=== PATIENT | male | born 1990 | race Caucasian/White ===

== ENCOUNTER 2018-04-14 12:13 | Inpatient (IN) | payer OTHER ==
[2018-04-14 15:21] VITALS: BMI 19.1
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
[2018-04-14] MEDS ORDERED: ACETAMINOPHEN 325 MG TABLET (FP) PO PRN (16:09)
[2018-04-14] MEDS ORDERED: IBUPROFEN 400 MG TABLET (FP) PO PRN (16:09)
[2018-04-14] MEDS ORDERED: guaiFENesin/D-METHORPHAN HB 10 ML UNIT-DOSE CUPS PO PRN (16:09)
[2018-04-14] MEDS ORDERED: MAG HYDROX/AL HYDROX/SIMETH 30 ML UNIT-DOSE CUP PO PRN (16:09)
[2018-04-14] MEDS ORDERED: MENTHOL/PHENOL 1 EACH UD MM PRN (16:09)
[2018-04-14] MEDS ORDERED: P-EPHED 60MG/TRIPROLIDI 2.5MG TABLET PO PRN (16:09)
[2018-04-14] MEDS ORDERED: MAGNESIUM HYDROX 2400MG/30ML ORAL SUSPENSION 30 ML CUP PO PRN (16:09)
[2018-04-14] MEDS ORDERED: MAGNESIUM CITRATE 300 ML BOTTLE PO PRN (16:09)
[2018-04-14] MEDS ORDERED: METHADONE HCL 10 MG TABLET PO ONE (18:15)
[2018-04-14] MEDS ORDERED: METHADONE HCL 5 MG TABLET (FOR DETOX USE ONLY) PO ONE (19:00)
[2018-04-14] MEDS: BACITRACIN 0.9 GM PACKET TP SCH (22:03)
[2018-04-14] MEDS: THIAMINE HCL 100 MG TABLET (FP) PO SCH (22:04)
[2018-04-14] MEDS: MELATONIN 5 MG TABLETS PO PRN (22:05)
[2018-04-14] MEDS ORDERED: METHADONE HCL 10 MG TABLET (FOR DETOX USE ONLY) PO ONE (23:00)
[2018-04-15] MEDS: PRENATAL VITAMINS W/ FOLIC ACID TABLET (FP) PO SCH (09:50)
[2018-04-15] MEDS: BACITRACIN 0.9 GM PACKET TP SCH ×2 (09:50→22:05)
[2018-04-15] MEDS ORDERED: METHADONE HCL 10 MG TABLET (FOR DETOX USE ONLY) PO ONE (10:00)
[2018-04-15 10:21] LABS: HEMATOCRIT 43.2 % (35.4-49); HEMOGLOBIN 14.3 GM/dL (11.7-16.9); MCH 30.9 pg (25.7-33.7); MEAN CELL VOLUME 93.6 fl (80-96); MEAN PLT VOLUME 7.8 fl (7.5-11.1); PLATELET COUNT 265 K/MM3 (134-434); RBC 4.61 M/mm3 (4.00-5.60); RDW 12.8 % (11.9-15.9)
[2018-04-15 10:51] LABS: ALBUMIN 3.4 g/dl (3.4-5.0); ALK PHOS 63 U/L (45-117); ANION GAP 9 MMOL/L (8-16); BILIRUBIN,TOTAL 0.6 mg/dL (0.2-1); BLOOD UREA NITROGEN 13 mg/dL (7-18); CALCIUM 8.9 mg/dL (8.5-10.1); CHLORIDE 104 mmol/L (98-107); CO2 28 mmol/L (21-32); CREATININE 0.7 mg/dL (0.55-1.3); GLUCOSE,RANDOM 80 mg/dL (74-106); POTASSIUM 4.2 mmol/L (3.5-5.1); SGOT/AST 11 U/L (15-37); SGPT/ALT 23 U/L (13-61); SODIUM 141 mmol/L (136-145); TOT PROT 6.7 g/dl (6.4-8.2)
[2018-04-15 13:03] LABS: URINE APPEARANCE TURBID; URINE BILIRUBIN NEGATIVE (<2.0 mg/dL); URINE COLOR AMBER; URINE GLUCOSE (UA) NEGATIVE (NEGATIVE); URINE KETONE NEGATIVE (NEGATIVE); URINE LEUK ESTERASE NEGATIVE (NEGATIVE); URINE NITRITE NEGATIVE (NEGATIVE); URINE PROTEIN NEGATIVE (NEGATIVE); URINE UROBILINOGEN NEGATIVE mg/dL (0.2-1.0)
--- NOTE | 2018-04-15 16:58 | PN ---
BHS COWS - Scale Resting Pulse: 0= [place] 80 or Below Sweatin= Chills/Flushing Restless Observation: 1= Difficult to Sit Still Pupil Size: 0= Normal to Room Light Bone or Joint Aches: 1= Mild Discomfort Runny Nose/ Eye Tearin= Runny Nose/Eyes GI Upset > 30mins: 0= None Tremor Observation of Outstretched Hands: 1= Tremor [place], Not Seen Yawning Observation: 2= >3x During Session Anxiety or Irritability: 2=Irritable/Anxious Goose Flesh Skin: 0=Smooth Skin COWS Score: 10 BHS Progress Note (SOAP) Subjective: sweats, chills, interrupted sleep Objective: 04/15/18 16:57 Vital Signs Temperature 97.8 F 04/15/18 13:38 Pulse Rate 68 04/15/18 13:38 Respiratory Rate 20 04/15/18 13:38 Blood Pressure 100/76 04/15/18 13:38 O2 Sat by Pulse Oximetry (%) Laboratory Last Values WBC 8.0 K/mm3 (4.0-10.0) 04/15/18 08:00 RBC 4.61 M/mm3 (4.00-5.60) 04/15/18 08:00 Hgb 14.3 GM/dL (11.7-16.9) 04/15/18 08:00 Hct 43.2 % (35.4-49) 04/15/18 08:00 MCV 93.6 fl (80-96) 04/15/18 08:00 MCH 30.9 pg (25.7-33.7) 04/15/18 08:00 MCHC 33.0 g/dl (32.0-35.9) 04/15/18 08:00 RDW 12.8 % (11.9-15.9) 04/15/18 08:00 Plt Count 265 K/MM3 (134-434) 04/15/18 08:00 MPV 7.8 fl (7.5-11.1) 04/15/18 08:00 Sodium 141 mmol/L (136-145) 04/15/18 08:00 Potassium 4.2 mmol/L (3.5-5.1) 04/15/18 08:00 Chloride 104 mmol/L (98-107) 04/15/18 08:00 Carbon Dioxide 28 mmol/L (21-32) 04/15/18 08:00 Anion Gap 9 MMOL/L (8-16) 04/15/18 08:00 BUN 13 mg/dL (7-18) 04/15/18 08:00 Creatinine 0.7 mg/dL (0.55-1.3) 04/15/18 08:00 Creat Clearance w eGFR > 60 (>60) 04/15/18 08:00 Random Glucose 80 mg/dL (74-106) 04/15/18 08:00 Calcium 8.9 mg/dL (8.5-10.1) 04/15/18 08:00 Total Bilirubin 0.6 mg/dL (0.2-1) 04/15/18 08:00 AST 11 U/L (15-37) L 04/15/18 08:00 ALT 23 U/L (13-61) 04/15/18 08:00 Alkaline Phosphatase 63 U/L (45-117) 04/15/18 08:00 Total Protein 6.7 g/dl (6.4-8.2) 04/15/18 08:00 Albumin 3.4 g/dl (3.4-5.0) 04/15/18 08:00 Urine Color April 04/15/18 09:30 Urine Appearance Turbid 04/15/18 09:30 Urine pH 5.0 (5.0-8.0) 04/15/18 09:30 Ur Specific Robinson 1.024 (1.010-1.035) 04/15/18 09:30 Urine Protein Negative (NEGATIVE) 04/15/18 09:30 Urine Glucose (UA) Negative (NEGATIVE) 04/15/18 09:30 Urine Ketones Negative (NEGATIVE) 04/15/18 09:30 Urine Blood Negative (NEGATIVE) 04/15/18 09:30 Urine Nitrite Negative (NEGATIVE) 04/15/18 09:30 Urine Bilirubin Negative (<2.0 mg/dL) 04/15/18 09:30 Urine Urobilinogen Negative mg/dL (0.2-1.0) 04/15/18 09:30 Ur Leukocyte Esterase Negative (NEGATIVE) 04/15/18 09:30 RPR Titer Nonreactive (NONREACTIVE) 04/15/18 08:00 Aox3 no distress skin intact no adventitious breath sounds Full ROm ambulatory Assessment: 04/15/18 16:58 withdrawal sx Plan: increase Po fluids continue detox continue to monitor
[2018-04-15] MEDS: hydrOXYzine PAMOATE 25 MG CAPSULE (FP) PO PRN (17:05)
[2018-04-15] MEDS: MELATONIN 5 MG TABLETS PO PRN (22:05)
[2018-04-15] MEDS: THIAMINE HCL 100 MG TABLET (FP) PO SCH (22:05)
[2018-04-16] MEDS: hydrOXYzine PAMOATE 25 MG CAPSULE (FP) PO PRN ×3 (00:35→22:07)
[2018-04-16] MEDS ORDERED: METHADONE HCL 5 MG TABLET (FOR DETOX USE ONLY) PO ONE (10:00)
[2018-04-16] MEDS: PRENATAL VITAMINS W/ FOLIC ACID TABLET (FP) PO SCH (10:06)
[2018-04-16] MEDS: BACITRACIN 0.9 GM PACKET TP SCH ×2 (10:07→22:07)
--- NOTE | 2018-04-16 11:52 | PN ---
BHS COWS - Scale Resting Pulse: 0= [place] 80 or Below Sweatin= Chills/Flushing Restless Observation: 3= Extraneous Movement Pupil Size: 0= Normal to Room Light Bone or Joint Aches: 2= Severe Diffuse Aches Runny Nose/ Eye Tearin= Runny Nose/Eyes GI Upset > 30mins: 2= Nausea/Diarrhea Tremor Observation of Outstretched Hands: 2= Slight Tremor Visible Yawning Observation: 1= 1-2x During Session Anxiety or Irritability: 2=Irritable/Anxious Goose Flesh Skin: 0=Smooth Skin COWS Score: 15 BHS Progress Note (SOAP) Subjective: Tremor, chills, sweating, interrupted sleep Objective: 04/16/18 11:49 Last Vital Signs Temp Pulse Resp BP Pulse Ox 97.6 F 72 18 115/83 04/16/18 09:35 04/16/18 09:35 04/16/18 09:35 04/16/18 09:35 Laboratory Tests 04/15/18 04/15/18 04/15/18 08:00 08:00 08:00 WBC 8.0 RBC 4.61 Hgb 14.3 Hct 43.2 MCV 93.6 MCH 30.9 MCHC 33.0 RDW 12.8 Plt Count 265 MPV 7.8 Sodium 141 Potassium 4.2 Chloride 104 Carbon Dioxide 28 Anion Gap 9 BUN 13 Creatinine 0.7 Creat Clearance w eGFR > 60 Random Glucose 80 Calcium 8.9 Total Bilirubin 0.6 AST 11 L ALT 23 Alkaline Phosphatase 63 Total Protein 6.7 Albumin 3.4 Urine Color Urine Appearance Urine pH Ur Specific Friend Urine Protein Urine Glucose (UA) Urine Ketones Urine Blood Urine Nitrite Urine Bilirubin Urine Urobilinogen Ur Leukocyte Esterase RPR Titer Nonreactive 04/15/18 09:30 WBC RBC Hgb Hct MCV MCH MCHC RDW Plt Count MPV Sodium Potassium Chloride Carbon Dioxide Anion Gap BUN Creatinine Creat Clearance w eGFR Random Glucose Calcium Total Bilirubin AST ALT Alkaline Phosphatase Total Protein Albumin Urine Color April Urine Appearance Turbid Urine pH 5.0 Ur Specific Friend 1.024 Urine Protein Negative Urine Glucose (UA) Negative Urine Ketones Negative Urine Blood Negative Urine Nitrite Negative Urine Bilirubin Negative Urine Urobilinogen Negative Ur Leukocyte Esterase Negative RPR Titer Labs reviewed Assessment: 04/16/18 11:50 Withdrawal symptoms Plan: Continue detox Encouraged PO water intake
[2018-04-16] MEDS: THIAMINE HCL 100 MG TABLET (FP) PO SCH (22:07)
[2018-04-16] MEDS: MELATONIN 5 MG TABLETS PO PRN (22:08)
[2018-04-17] MEDS ORDERED: METHADONE HCL 10 MG TABLET (FOR DETOX USE ONLY) PO ONE (10:00)
[2018-04-17] MEDS: PRENATAL VITAMINS W/ FOLIC ACID TABLET (FP) PO SCH (10:02)
[2018-04-17] MEDS: BACITRACIN 0.9 GM PACKET TP SCH ×2 (10:02→22:08)
--- NOTE | 2018-04-17 14:54 | PN ---
BHS Progress Note (SOAP) Subjective: Sleep disturbance sweats hot/cold chills Objective: 04/17/18 14:52 A & O x 3 In no acute distress Vital Signs Temperature 98.2 F 04/17/18 13:02 Pulse Rate 86 04/17/18 13:02 Respiratory Rate 18 04/17/18 13:02 Blood Pressure 110/69 04/17/18 13:02 O2 Sat by Pulse Oximetry (%) Assessment: 04/17/18 14:53 withdrawal sx Plan: continue detox
[2018-04-17] MEDS: MELATONIN 5 MG TABLETS PO PRN (22:07)
[2018-04-17] MEDS: THIAMINE HCL 100 MG TABLET (FP) PO SCH (22:08)
[2018-04-18] MEDS ORDERED: METHADONE HCL 5 MG TABLET (FOR DETOX USE ONLY) PO ONE (06:00)
[2018-04-18 06:01] VITALS: BP 100/63; PULSE 67; TEMP 97.1
--- NOTE | 2018-04-18 10:19 | DS ---
[facility] Detox Discharge Summary Admission Date: 04/14/18 Discharge Date: 04/18/18 - History Present History: Opioid Dependence - Physical Exam Results Vital Signs: Vital Signs Temperature 97.1 F L 04/18/18 06:01 Pulse Rate 67 04/18/18 06:01 Respiratory Rate 18 04/18/18 06:01 Blood Pressure 100/63 04/18/18 06:01 O2 Sat by Pulse Oximetry (%) Pertinent Admission Physical Exam Findings: PATIENT COMPLETED DETOX WITHOUT ADVERSE EVENT. PATIENT CLINICALLY STABLE AND DENIES SI/HI. PATIENT ALERT AND ORIENTED X 3, AMB AD CJ, EXT WITH FULL ROM. PATIENT ENCOURAGED TO ATTEND NA TO PREVENT RELAPSE AND TO SEEK MEDICAL ATTENTION IF WITHDRAWAL SX OCCUR. PATIENT TO FOLLOW UP WITH PCP WITHIN ONE WEEK OF D/C. D/C INSTRUCTIONS GIVEN TO PATIENT BY STAFF. - Treatment Hospital Course: Detox Protocol Followed, Detoxed Safely, Responded well, Discharged Condition Good - Medication Discharge Medications: Ambulatory Orders Unobtainable 04/14/18 - AMA Did Patient Leave Against Medical Advice: No
== END 2018-04-18 09:18 | disposition home or self-care (01) | DRG 776 ==
LOC: YASAS 12:13 → Y3N 17:08
PROC: HZ2ZZZZ Detoxification Services for Substance Abuse Treatment (ICD-10-PCS; principal; 2018-04-14)
DX: F12.10 Cannabis abuse, uncomplicated (principal); F17.210 Nicotine dependence, cigarettes, uncomplicated; K50.90 Crohn's disease, unspecified, without complications
CPT/HCPCS: 36415; 80053; 81003; 85027; 86593

== ENCOUNTER 2024-04-03 16:54 | Inpatient (IN) | payer OTHER ==
[2024-04-03 18:00] VITALS: BMI 17.7
[2024-04-03] MEDS ORDERED: POLYETHYLENE GLYCOL (HEALTHYLAX) 3350 17 GM PACKET PO PRN (18:40)
[2024-04-03] MEDS ORDERED: BENZONATATE 200 MG CAPSULE PO PRN (18:40)
[2024-04-03] MEDS ORDERED: MAG HYDROX/AL HYDROX/SIMETH 30 ML UNIT-DOSE CUP PO PRN (18:40)
[2024-04-03] MEDS ORDERED: MAGNESIUM HYDROX 2400MG/30ML ORAL SUSPENSION 30 ML CUP PO PRN (18:40)
[2024-04-03] MEDS ORDERED: P-EPHED 60MG/TRIPROLIDI 2.5MG TABLET PO PRN (18:40)
[2024-04-03] MEDS ORDERED: IBUPROFEN 600 MG TABLET (FP) PO PRN (18:40)
[2024-04-03] MEDS ORDERED: DICYCLOMINE HCL 10 MG CAPSULE PO PRN (18:40)
[2024-04-03] MEDS ORDERED: LOPERAMIDE HCL 2 MG CAPSULE PO PRN (18:40)
[2024-04-03] MEDS ORDERED: NALOXONE (NYS OPIOID OVERDOSE PROGRAM) 4 MG/0.1 ML SPRAY NS PRN (18:40)
[2024-04-03] MEDS ORDERED: IBUPROFEN 400 MG TABLET (FP) PO PRN (18:40)
[2024-04-03] MEDS ORDERED: NALOXONE (NARCAN) HCL 4 MG/0.1 ML SPRAY NS PRN (18:40)
[2024-04-03] MEDS ORDERED: ONDANSETRON *ODT* 4 MG TABLET SL PRN (18:40)
[2024-04-03] MEDS ORDERED: BISMUTH SUBSALICYLATE 524 MG/30 ML PO PRN (18:40)
[2024-04-03] MEDS ORDERED: NICOTINE POLACRILEX 2 MG GUM BUC PRN (18:40)
[2024-04-03] MEDS ORDERED: NICOTINE POLACRILEX 2 MG LOZENGE BC PRN (18:40)
[2024-04-03] MEDS ORDERED: BENZOCAINE/MENTHOL (CHLORASEPTIC ) LOZENGE MM PRN (18:40)
[2024-04-03] MEDS: diazePAM 5 MG TABLET PO PRN (19:37)
[2024-04-03] MEDS: THIAMINE 100 MG TABLET PO SCH (22:09)
[2024-04-04] MEDS: methaDONE HCL 10 MG TABLET (FOR DETOX USE ONLY) PO ONE (10:17)
[2024-04-04] MEDS: PRENATAL VITAMINS W/ FOLIC ACID TABLET (FP) PO SCH (10:18)
[2024-04-04 11:27] LABS: POTASSIUM 3.9 mmol/L (3.5-5.1)
[2024-04-04 11:29] LABS: CALCIUM 8.9 mg/dL (8.5-10.1)
[2024-04-04 11:31] LABS: HEMATOCRIT 35.3 % (35.4-49); MCH 30.1 pg (25.7-33.7); MCHC 33.9 g/dl (32.0-35.9); MEAN CELL VOLUME 88.7 fl (80-96); MEAN PLT VOLUME 7.4 fl (7.5-11.1); PLATELET COUNT 244 10^3/uL (134-434); RBC 3.98 M/mm3 (4.00-5.60); RDW 12.8 % (11.9-15.9); WHITE BLOOD COUNT 6.7 K/mm3 (4.0-10.0)
[2024-04-04 11:33] LABS: CREATININE 0.7 mg/dL (0.55-1.3)
[2024-04-04 11:34] LABS: BILIRUBIN,TOTAL 0.3 mg/dL (0.2-1); TOT PROT 5.6 g/dl (6.4-8.2)
[2024-04-04] MEDS: guaiFENesin 600 MG TABLET.ER (FP) PO PRN (17:46)
[2024-04-04] MEDS: BUPRENORPHINE/NALOXONE 0.5 MG/0.125 MG FILM SL ONE (17:48)
[2024-04-04] MEDS: SUVOREXANT 10 MG TABLET PO PRN (22:37)
[2024-04-05] MEDS: BUPRENORPHINE/NALOXONE 0.5 MG/0.125 MG FILM SL SCH (09:33)
[2024-04-05] MEDS: METHOCARBAMOL 500 MG TABLET PO PRN (19:11)
[2024-04-06] MEDS: ALBUTEROL SO4 HFA INHALER IH PRN (06:21)
[2024-04-06] MEDS: BUPRENORPHINE/NALOXONE 2 MG/0.5 MG FILM PACKET SL SCH (10:05)
[2024-04-06] MEDS: methaDONE HCL 10 MG TABLET (FOR DETOX USE ONLY) PO ONE (10:05)
[2024-04-06] MEDS: BUDESONIDE/FORMETEROL FUMARATE 80/4.5 mcg INHALER IH SCH (11:29)
[2024-04-06] MEDS ORDERED: cloNIDine HCL 0.1 MG TABLET PO PRN (16:32)
[2024-04-06] MEDS: hydrOXYzine PAMOATE 50 MG CAPSULE (FP) PO PRN (19:01)
[2024-04-06] MEDS: METHOCARBAMOL 500 MG TABLET PO PRN (19:01)
[2024-04-06 20:36] VITALS: TEMP 97.7
[2024-04-06] MEDS: diazePAM 5 MG TABLET PO ONE ×2 (22:11→23:48)
[2024-04-07] MEDS: ACETAMINOPHEN 325 MG TABLET (FP) PO PRN (01:35)
[2024-04-07 02:28] VITALS: BP 117/78; PULSE 84; RESP 17
[2024-04-07] MEDS ORDERED: BUPRENORPHINE/NALOXONE 4 MG/1 MG FILM PACKET SL SCH (10:00)
[2024-04-08] MEDS ORDERED: methaDONE HCL 10 MG TABLET (FOR DETOX USE ONLY) PO ONE (10:00)
[2024-04-08] MEDS ORDERED: BUPRENORPHINE/NALOXONE 8 MG/2 MG FILM PACKET SL SCH ×2 (10:00)
== END 2024-04-07 02:42 | disposition home or self-care (01) | DRG 897 ==
LOC: YASAS 16:54 → Y3N 18:35
PROVIDERS: ADMIT Allergy & Immunology; ATTEND Surgery
PROC: HZ2ZZZZ Detoxification Services for Substance Abuse Treatment (ICD-10-PCS; principal; 2024-04-03)
DX: F11.23 Opioid dependence with withdrawal (principal); F19.282 Other psychoactive substance dependence with psychoactive substance-induced sleep disorder; F17.210 Nicotine dependence, cigarettes, uncomplicated; F41.9 Anxiety disorder, unspecified; J40 Bronchitis, not specified as acute or chronic; R05.9 Cough, unspecified; Z87.19 Personal history of other diseases of the digestive system
CPT/HCPCS: 0241U-QW; 36415; 80053; 80305; 80307; 85027; 86780; 93005; 93010

== ENCOUNTER 2024-04-06 00:42 | Emergency (ER) | payer OTHER ==
[2024-04-06 01:01] VITALS: BP 118/57; PULSE 68; RESP 18; TEMP 98.5; BMI 24.3
[2024-04-06] MEDS ORDERED: ALBUTEROL SO4 HFA INHALER IH ONE (02:15)
[2024-04-06] MEDS: ALBUTEROL SO4 HFA INHALER IH ONE (02:24)
[2024-04-06 03:59] LABS: HIV INTERPRETATION NEGATIVE (NEGATIVE)
== END 2024-04-06 02:37 | disposition home or self-care (01) ==
LOC: JER 00:42
DX: J40 Bronchitis, not specified as acute or chronic (principal); R05.9 Cough, unspecified; M79.10 Myalgia, unspecified site
CPT/HCPCS: 36415; 71046-TC-FY; 86803; 87389; 99284-25

== ENCOUNTER 2024-04-07 02:54 | Emergency (ER) | payer OTHER ==
[2024-04-07 03:05] VITALS: TEMP 97.5; BMI 24.3
[2024-04-07 07:44] VITALS: BP 103/68; PULSE 63; RESP 15
== END 2024-04-07 07:51 | disposition home or self-care (01) ==
LOC: JER 02:54
DX: R25.8 Other abnormal involuntary movements (principal); W06.XXXA Fall from bed, initial encounter
CPT/HCPCS: 70450-TC; 71101-TC-LT-FY; 72125-TC; 99284-25